=== PATIENT | male | born 1955 | race Caucasian/White ===

== ENCOUNTER 2021-04-07 15:06 | Inpatient (IN) | payer BC, MEDICARE ==
[~2021-04-07] VITALS: Ht 172.7 cm; Wt 220.0 kg
[2021-04-07 15:52] LABS: HEMOGLOBIN 15.3 gm/dl (14.0-17.5); RED BLOOD COUNT 5.17 M/UL (4.20-5.50); WHITE BLOOD COUNT 7.6 K/UL (4.5-11.0)
[2021-04-07 16:06] LABS: BUN/CREATININE RATIO 16 (0-10)
[2021-04-07] MEDS ORDERED: BRILINTA90 MG PO (16:56)
[2021-04-07] MEDS ORDERED: CRESTOR10 MG PO (16:56)
[2021-04-07] MEDS ORDERED: ASPIRIN81 MG PO (16:56)
[2021-04-07] MEDS ORDERED: LISINOPRIL20 MG PO (16:57)
[2021-04-07] MEDS ORDERED: CARVEDILOL6.25 MG PO (16:57)
[2021-04-07] MEDS ORDERED: CETIRIZINE HCL10 MG PO (16:57)
[2021-04-07] MEDS ORDERED: FLONASE ALLER15.8 ML (16:58)
[2021-04-07] MEDS ORDERED: VITAMIN D21250 MCG PO (16:58)
[2021-04-07] MEDS ORDERED: NITROGLYCERIN0.4 MG SL (16:58)
[2021-04-07] MEDS ORDERED: OMEPRAZOLE20 MG PO (16:58)
[2021-04-07] MEDS ORDERED: VITAMIN B-12500 MCG PO (16:59)
[2021-04-07] MEDS ORDERED: VITAMIN C500 M4 PO (16:59)
[2021-04-07] MEDS ORDERED: ZINC50 M1 PO (16:59)
[2021-04-08 05:45] LABS: BUN/CREATININE RATIO 16 (0-10)
[2021-04-08 06:00] LABS: HEMOGLOBIN 13.6 gm/dl (14.0-17.5); RED BLOOD COUNT 4.71 M/UL (4.20-5.50)
[2021-04-08 06:05] LABS: WHITE BLOOD COUNT 5.3 K/UL (4.5-11.0)
[2021-04-08] MEDS ORDERED: AMLODIPINE BESY10 MG PO (16:15)
[2021-04-08] MEDS ORDERED: CRESTOR20 MG PO (16:15)
== END 2021-04-08 17:50 | disposition home or self-care (01) | DRG 249 ==
LOC: ER1 15:06 → CCU 16:20 → CDU 16:20 → CCU 18:51
PROVIDERS: Emergency Medicine; ADMIT Internal Medicine Cardiovascular Disease
PROC: 02703DZ Dilation of Coronary Artery, One Artery with Intraluminal Device, Percutaneous Approach (ICD-10-PCS; principal; 2021-04-07)
PROC: 4A023N7 Measurement of Cardiac Sampling and Pressure, Left Heart, Percutaneous Approach (ICD-10-PCS; 2021-04-07)
PROC: B2111ZZ Fluoroscopy of Multiple Coronary Arteries using Low Osmolar Contrast (ICD-10-PCS; 2021-04-07)
PROC: B24BZZZ Ultrasonography of Heart with Aorta (ICD-10-PCS; 2021-04-08)
DX: I25.110 Atherosclerotic heart disease of native coronary artery with unstable angina pectoris (principal); I10 Essential (primary) hypertension; Z20.822 Contact with and (suspected) exposure to COVID-19; E78.5 Hyperlipidemia, unspecified; R00.1 Bradycardia, unspecified; I25.5 Ischemic cardiomyopathy; Y83.9 Surgical procedure, unspecified as the cause of abnormal reaction of the patient, or of later complication, without mention of misadventure at the time of the procedure; Z85.46 Personal history of malignant neoplasm of prostate; Z90.49 Acquired absence of other specified parts of digestive tract; Z82.49 Family history of ischemic heart disease and other diseases of the circulatory system; Z90.79 Acquired absence of other genital organ(s); Z95.5 Presence of coronary angioplasty implant and graft; Z79.82 Long term (current) use of aspirin; Z79.899 Other long term (current) drug therapy; Z83.3 Family history of diabetes mellitus; Z88.1 Allergy status to other antibiotic agents
CPT/HCPCS: ECHO; 36415; 71045; 80048; 80053; 82550; 82553; 83874; 83880; 84484; 85025; 85347; 85610; 85730; 90686; 92920; 92978; 93005; 93306; 96374; 99152; 99153; 99285; C1725; C1753; C1769; C1887; C1894; J0461; J1644; J2250; J2270; J2405; J3010; Q9965; U0002